=== PATIENT | female | born 1995 | race Two or more races ===

== ENCOUNTER 2024-06-10 05:09 | Observation (INO) | payer MEDICAID, SELFPAY ==
[2024-06-10 05:15] VITALS: BP 114/76; RESP 16; TEMP 36.7; O2SAT 97
[2024-06-10 05:33] VITALS: BMI 34.0
== END 2024-06-10 05:57 | disposition home or self-care (01) ==
PROVIDERS: Admitting Provider Obstetrics & Gynecology; Visit Provider Advanced Practice Midwife
DX: O26.893 Other specified pregnancy related conditions, third trimester (principal); Z3A.29 29 weeks gestation of pregnancy; R10.9 Unspecified abdominal pain; R19.7 Diarrhea, unspecified
CPT/HCPCS: 59899

== ENCOUNTER 2024-06-11 00:03 | Observation (INO) | payer MEDICAID, SELFPAY ==
[2024-06-11 00:07] VITALS: BP 120/73; PULSE 100
[2024-06-11 00:10] VITALS: RESP 16; TEMP 36.8; O2SAT 97
[2024-06-11 00:19] VITALS: TEMP 36.8; BMI 34.9
[2024-06-11] MEDS: ONDANSETRON ODT 4 MG TABRAP PO (00:47)
== END 2024-06-11 01:02 | disposition home or self-care (01) ==
PROVIDERS: Admitting Provider Obstetrics & Gynecology; Visit Provider Obstetrics & Gynecology
DX: O21.2 Late vomiting of pregnancy (principal); O26.893 Other specified pregnancy related conditions, third trimester; R19.7 Diarrhea, unspecified; Z3A.29 29 weeks gestation of pregnancy
CPT/HCPCS: 59025; 59899; Q0162

== ENCOUNTER 2024-08-17 11:47 | Inpatient (IN) | payer MEDICAID, SELFPAY ==
[2024-08-17] VITALS (26 sets, daily range): BP systolic 111–146; BP diastolic 56–87; PULSE 75–117; RESP 15; TEMP 36.7; O2SAT 90–97; BMI 39.8
--- NOTE | 2024-08-17 12:52 | XR_ITS ---
Examination: Biophysical profile, ultrasound Date and time of exam: August 17, 2024 1430 hours INDICATIONS: Pelvic contractions beginning 2 days ago, diagnosis high risk Technique: Multiple transabdominal sonographic images of the pelvis abdomen obtained. Attention is directed to the breathing movement, gross body movement, amniotic fluid volume and tone. Findings: Amniotic fluid index 2.4 cm Total biophysical profile is 6 of 8. breathing movement is 2. Gross body movement is 2. tone is 2. Qualitative amniotic fluid volume is 0 Impression: Biophysical profile is 6 of 8.
[2024-08-17 13:48] LABS: Basophils # (Auto) 0.1 Thou/mm3 (0.0-0.2); Basophils % (Auto) 0 % (0-2.5); Eosinophils # (Auto) 0.1 Thou/mm3 (0.0-0.5); Eosinophils % (Auto) 1 % (0-10); Hematocrit 39.9 % (36.0-46.0); Hemoglobin 13.5 g/dL (12.0-16.0); Immature Granulocytes % (Auto) 2 % (0-0); Immature Granulocytes Auto 0.25 Thou/mm3 (0.00-0.00); Lymphocytes % (Auto) 14 % (10-50); Mean Corpuscular HGB Conc 33.8 g/dl (31.0-37.0); Mean Corpuscular Hemoglobin 30.9 pg (25.0-35.0); Mean Corpuscular Volume 91 fL (80-100); Monocytes # (Auto) 1.2 Thou/mm3 (0.0-0.8); Monocytes % (Auto) 8 % (0-12); Neutrophils % (Auto) 76 % (37-80); Nucleated Red Blood Cell % 0 /100 WBC (0); Platelet Count 227 Thou/mm3 (140-440); RDW Standard Deviation 46.8 fL (36.4-46.3); Red Blood Count 4.37 Miln/mm3 (4.00-5.20); White Blood Count 14.6 Thou/mm3 (3.6-11.0)
[2024-08-17 13:55] LABS: Collection Type, Urine Clean Catch
[2024-08-17 14:11] LABS: Alanine Aminotransferase 67 U/L (10-49); Albumin, Serum 3.8 gm/dL (3.5-5.0); Albumin/Globulin Ratio 1.4 (1.2-2.2); Alkaline Phosphatase 136 U/L (46-116); Anion Gap 8 (7-16); Aspartate Amino Transferase 45 U/L (0-34); BUN/Creatinine Ratio 12 Ratio (12-20); Bilirubin,Total 0.4 mg/dL (0.3-1.2); Blood Urea Nitrogen 7 mg/dL (9-23); Calcium 9.5 mg/dL (8.3-10.6); Calcium (Corrected) 9.7 mg/dL (8.5-10.1); Carbon Dioxide 23.7 mMol/L (20.0-31.0); Chloride 107 mMol/L (98-107); Creatinine (Component) 0.6 mg/dL (0.6-1.3); Globulin 2.7 gm/dL (2.3-3.5); Glucose 81 mg/dL (74-106); Osmolality,Calculated 274 (275-295); Potassium 4.5 mMol/L (3.4-5.1); Sodium 139 mMol/L (136-145); Total Protein 6.5 gm/dL (5.7-8.2); Uric Acid 5.3 mg/dL (3.1-7.8); eGFR > 60 See Note
[2024-08-17 14:19] LABS: Fibrinogen 439 mg/dL (175-375); Partial Thromboplastin Time 26.7 Seconds (22.0-36.0); Prothrombin Time 10.9 Seconds (9.0-12.2)
[2024-08-17 14:24] LABS: Bacteria,Urine 3+; Bilirubin,Urine Negative (Negative); Blood,Urine Negative (Negative); Clarity,Urine Turbid (Clear/Hazy); Color,Urine Yellow (Lt Yel-Yel); Glucose, Urine Negative (Negative); Ketones,Urine Negative (Negative); Leukocyte Esterase,Urine Positive (Negative); Nitrite,Urine Negative (Negative); PH,Urine 5.5 (5.0-7.0); Protein,Urine Trace (Neg - Trace); RBC,Urine < 1 /hpf (0-3); Specific Gravity,Urine 1.022 (1.001-1.035); Squamous Epithelial Cell,Urine 30 /hpf (0-5); Urobilinogen,Urine Negative mg/dL (0.0-1.0); WBC,Urine 14 /hpf (0-5)
--- NOTE | 2024-08-17 14:43 | XR_ITS ---
Examination: age Limited TECHNIQUE: Limited transabdominal sonographic images pelvis Exam date and time: August 17, 2024 1520 hours INDICATIONS: Pelvic contractions beginning 2 days ago FINDINGS: Viable intrauterine gestation cephalic presentation spine maternal left Cardiac motion 138 BPM IMPRESSION: Viable intrauterine gestation cephalic presentation
[2024-08-17] MEDS: MISOPROSTOL 50 mCg TABLET PO ×2 (16:30→20:35)
[2024-08-17 17:38] LABS: Syphilis Nonreactive (Nonreactive)
--- NOTE | 2024-08-17 18:06 | ESHP_ITS ---
Documentation for date of: 08/17/24 OB Labor/Induct. HPI History of Present Illness Chief complaint: labor : 1 Para: 0 Term pregnancies: 0 pregnancies: 0 Living children: 0 History of Abortions: Spontaneous and Elective: 0 History of Vaginal deliveries: 0 History of sections: No History of : No Date of last menstrual period: 11/17/23 PEDRO: 08/23/24 Gestational Age (weeks): 39 Gestational Age (days): 1 Gestational age based on last menstrual period: 39 Indication for induction: medical complication (elevated livers, oligo) History of present illness: 29-year-old 1 para 0 admit to labor and delivery with complaints of contractions since 7 in the morning. Patient is been followed [facility] care. First visit was 25 weeks. Last period November 17, 2023. Estimated due date of August 23, 2024. Patient is 39 and 1 complains of increased edema lower extremities so PIH labs were done and liver enzymes were elevated and patient had low MARLENE and BPP so patient was kept for induction. Patient is O+, antibody screen negative, RPR nonreactive, rubella immune, hepatitis B negative, hep C negative, HIV negative, GC and Chlamydia were negative. GBS negative. 1 hour GTT negative. Normal NIPT and carrier screens. And anatomy scans were normal History of Present Dating criteria: LMP confirmed by 1st trimester US Adequate Care: Yes Ultrasounds: normal 1st trimester US and normal mid trimester US Obstetrical complications: none and other Labs Labs: Negative: Hepatitis B, HIV, Chlamydia, Gonorrhea and Group Beta Strep Review of Systems Review of Systems Systems Reviewed: All systems reviewed, normal except as documented Past Medical History Surgical History SURGICAL: Positive Section Meds Home Medications and Allergies Home Medications ?Medication ?Instructions ?Recorded ?Confirmed ?Type no.58-iron bisglycinate 400 cap PO QDAY 06/1008/17/24 History 10 mg iron-folic acid 400 mcg capsule Allergies Allergy/AdvReac Type Severity Reaction Status Date / Time No Known Allergies Allergy Verified 08/17/24 15:36 OB Exam Physical Exam Vital signs: Pulse BP Pulse Ox 93 124/76 90 L 08/17/24 17:43 08/17/24 17:43 08/17/24 12:08 Narrative: Vital signs stable afebrile. Lungs are clear. Normal heart rate and rhythm. Gravid abdomen. Gynecoid pelvis. Estimated weight 7 pounds. Vaginal exam on admission was 80%, 2, -2. Vertex. Bag water intact. MARLENE was 2 and a BPP of 6 out of 8. With elevated liver enzymes. heart rate category 1 overall with accelerations and moderate variability and irregular contractions. Blood pressures were in mild range Detailed Labor and Delivery Exam Dilation (cm): 2 Effacement (%): 80 Cervix position: mid station: -2 Consistency: soft Presentation: Vertex Cervical ripeness score: 4 Membranes: intact Baseline heart rate: 145 monitor accelerations: 15x15 monitor decelerations: None terminal operator variability: Moderate (11-25) Contraction frequency (min): irreg Contraction duration (sec): 30 Tachysystole: No Contraction intensity: Mild OB Results Labs 08/17/24 13:35 08/17/24 13:35 Labs: Short CBC 08/17/24 Range/Units 13:35 WBC 14.6 H (3.6-11.0) Thou/mm3 Hgb 13.5 (12.0-16.0) g/dL Hct 39.9 (36.0-46.0) % Plt Count 227 (140-440) Thou/mm3 BMP 08/17/24 13:35 Sodium 139 Potassium 4.5 Chloride 107 Carbon Dioxide 23.7 BUN 7 L Creatinine 0.6 Glucose 81 Calcium 9.5 Liver Function 08/17/24 Range/Units 13:35 Total Bilirubin 0.4 (0.3-1.2) mg/dL AST 45 H (0-34) U/L ALT 67 H (10-49) U/L Alkaline Phosphatase 136 H (46-116) U/L Albumin 3.8 (3.5-5.0) gm/dL Urine 08/17/24 Range/Units 13:20 Urine Color Yellow (Lt Yel-Yel) Urine Clarity Turbid A (Clear/Hazy) Urine pH 5.5 (5.0-7.0) Ur Specific [place] 1.022 (1.001-1.035) Urine Protein Trace (Neg - Trace) Urine Glucose (UA) Negative (Negative) Impressions Impression: induction OB Assessment & Plan Assessment and Plan (1) Normal labor and delivery: Status: Acute Additional Plan Induction method: per misoprostol protocol Plan: induction, anticipate NVD and consult MD haji (Consult with Dr. Graham regarding elevated liver enzymes. Will continue to monitor blood pressure if blood pressure range increases above mild and or too severe then patient will be started also on mag sulfate started with Cytotec 50 till BC of 8 and then Pitocin to follow.)
[2024-08-17] MEDS: PROMETHAZINE INJ 25 MG/ML VIAL 12.5 MG IM (22:53)
[2024-08-17] MEDS: MEPERIDINE INJ 50 MG/ML VIAL 75 MG IM (22:53)
[2024-08-18] VITALS (348 sets, daily range): BP systolic 90–169; BP diastolic 48–97; PULSE 71–134; RESP 18–20; TEMP 36.8–37.2; O2SAT 88–100
--- NOTE | 2024-08-18 02:30 | PD.LDPN ---
Documentation for date of: 08/18/24 OB Labor Progress Note Pain Control Comments: I was called at 1:45 AM by the room nurse, baby is down for 3 minutes from a baseline of 130-90, patient is on hands and knees, in spite of the position change and IV bolus baby is not recovering. Primary low-transverse was called at that moment baby was back up after prolonged deceleration for 7 minutes. Pelvic Exam Dilation (cm): 3-4 Effacement (%): 100 station: -2 Amniotic membrane status: Ruptured Contractions Contraction frequency: irreg Contraction intensity: Mild Status Comments: Baby is back up with moderate variability and accelerations. Assessment and Plan Comments: Patient is hesitant about going for a . Currently baby is back up at 08/04/1939 baseline with moderate variability. On cervical examination she is 3 to 4 cm 100% effaced. Internal monitors placed after AROM scalp stimulation provoked and acceleration. will reassess in 10 min
[2024-08-18] MEDS: TERBUTALINE SULF INJ 1 MG/ML VIAL 0.25 MG SC (03:20)
[2024-08-18] MEDS: RINGERS LACTATED 1000 ML 1,000 ML 125 ML IV ×2 (08:31→16:31)
--- NOTE | 2024-08-18 17:10 | ESPR_ITS ---
Documentation for date of: 08/18/24 OB Labor Progress Note Pain Control Pain control: tolerating well and epidural Pelvic Exam Dilation (cm): 10 Effacement (%): 100 station: 0 Amniotic membrane status: Ruptured Contractions Monitor mode: Internal Contraction frequency: 3 Contraction intensity: Moderate Status status: Category l Assessment and Plan Assessment: active labor Plan OB labor note: continuous present management Comments: Patient has labored down approximately 2-1/2 hours we will start pushing soon. Patient has epidural in place and hand fretted instrument maker at bedside.
[2024-08-18] MEDS: OXYTOCIN in NS 20 units 20 UNIT/1,000 ML BAG 125 UNIT IV (17:40)
[2024-08-18] MEDS: IBUPROFEN TAB 400 MG TABLET 800 MG PO (19:25)
--- NOTE | 2024-08-18 19:37 | OBDSUM_ITS ---
Data ([place]) Data Hx Section: No Maternal Blood Type: O Pos Rubella Titre: Positive RPR: Non-reactive Labs: Negative: RPR, Hepatitis B, HIV, Chlamydia, Gonorrhea and Group Beta Strep : 1 Para: 0 Term: 0 : 0 : 0 Delivery Data ([place]) Labor Data Stimulated/Augmented: Yes Induction: Yes Method: Cervidil ROM Date: 08/18/24 ROM Time: 02:20 Rupture Type: AROM Amniotic Fluid: Clear Delivery Data EDC: 08/23/24 EDC calculated by:: LMP/early US confirmation Labor Onset Stage 1 Date: 08/17/24 Labor Onset Stage 1 Time: 16:30 Labor Onset Stage 2 Date: 08/18/24 Labor Onset Stage 2 Time: 16:08 Delivery Date: 08/18/24 Delivery Time: 17:36 Gestational age (weeks): 39 Gestational age (days): 2 Placenta Delivery Date: 08/18/24 Placenta Delivery Time: 17:40 Length stage 2 (minutes): 20 Length stage 3 (minutes): 5 Delivered by: Samantha Porter Delivery nurse: Starr Aparicio Mis Director at delivery: No Support person(s) at delivery: FOB. Sister of ptShannan CANDICE Nieves Other staff at delivery: Nursery Nurse Other staff at delivery: Denisa Lacey Delivery Method Delivery: Vaginal Delivery Type: Spontaneous Presentation: Vertex Position: OA Anesthesia Type Primary Anesthesia: Epidural Placenta Placenta Delivery: Spontaneous Placenta Cultures Obtained: No Placenta Sent for Examination: No Lacerations #1: Perineal: 1st degree Perineal repair Sutures used for repair: other (4-0 chromic) EBL Estimated blood loss (ml): 50 Umbilical Cord Umbilical Vessels: 3 Nuchal Cord: x1 Loosely Body Cord: None Additional Procedures The patient is a 29-year-old G1, P0 admitted by the environmental protection forester for an induction of labor for increased liver function tests and oligohydramnios on 08/17/24. She was signed out to me about 7:00 in the morning 08/18/24. I checked her first t celso in the morning she was 3 to 4 cm dilated. By one in the afternoon she was 9 cm dilated. She progressed to complete and then labored down approximately 2 and half hours and began and pushing about 1715.She pushed approximately 20 minutes delivering a liveborn male at 1736. Findings: liveborn male with a with a loose nuchal cord x 1 and light meconium behind the . Apgars were 8 and 9 weight was 7 pounds 8 ounces. The placenta was complete spontaneous and grossly normal delivering approximately 5 minutes after the baby delivered. The patient sustained a very small first-degree perineal laceration repaired in a standard fashion using 4-0 chromic. EBL was 50 cc. The patient had an epidural. Also of note patient requested the placenta to go home with her for placental encapsulation. Complications were none. Condition: both mom and were in stable condition in the delivery room Complications Complications: None [place] Data ([place]) [place] Data Infant Gender: Male Infant Weight Grams: 3390 1 Minute Total: 8 5 Minute Total: 9 Additional Comments Additional comments: Light meconium noted at delivery
[2024-08-18] MEDS: DOCUSATE SOD 100 MG CAPSULE PO (21:52)
[2024-08-19] VITALS (8 sets, daily range): BP systolic 109–133; BP diastolic 72–85; PULSE 74–99; RESP 18–20; TEMP 36.6–36.9; O2SAT 95–97
[2024-08-19 00:48] LABS: Basophils # (Auto) 0.1 Thou/mm3 (0.0-0.2); Basophils % (Auto) 0 % (0-2.5); Eosinophils # (Auto) 0.1 Thou/mm3 (0.0-0.5); Eosinophils % (Auto) 0 % (0-10); Hematocrit 33.2 % (36.0-46.0); Hemoglobin 11.4 g/dL (12.0-16.0); Immature Granulocytes % (Auto) 1 % (0-0); Immature Granulocytes Auto 0.27 Thou/mm3 (0.00-0.00); Lymphocytes % (Auto) 9 % (10-50); Mean Corpuscular HGB Conc 34.3 g/dl (31.0-37.0); Mean Corpuscular Hemoglobin 31.2 pg (25.0-35.0); Mean Corpuscular Volume 91 fL (80-100); Monocytes # (Auto) 2.5 Thou/mm3 (0.0-0.8); Monocytes % (Auto) 11 % (0-12); Neutrophils # (Auto) 18.4 Thou/mm3 (1.8-7.7); Neutrophils % (Auto) 79 % (37-80); Nucleated Red Blood Cell % 0 /100 WBC (0); Platelet Count 200 Thou/mm3 (140-440); RDW Standard Deviation 47.8 fL (36.4-46.3); Red Blood Count 3.65 Miln/mm3 (4.00-5.20); White Blood Count 23.3 Thou/mm3 (3.6-11.0)
[2024-08-19] MEDS: ACETAMINOPHEN 325 MG TABLET 650 MG PO ×2 (06:35→11:19)
[2024-08-19] MEDS: IBUPROFEN TAB 400 MG TABLET 800 MG PO ×3 (07:21→23:22)
[2024-08-19] MEDS: DOCUSATE SOD 100 MG CAPSULE PO ×2 (08:58→21:45)
--- NOTE | 2024-08-19 09:19 | ESPR_ITS ---
Subjective Subjective Interval history: Patient doing well overall, just tired. Minimal discomfort. She is ambulating no lightheadedness/dizziness. Voiding spontaneously, no issues. Tolerating regular diet without nausea/vomiting. No fevers/chills, no CP/SOB. Exam Vital Signs Temp Pulse Resp BP Pulse Ox O2 Del Method 98.4 F 95 20 129/81 95 Room Air 08/19/24 07:30 08/19/24 07:30 08/19/24 07:30 08/19/24 07:30 08/19/24 07:30 08/19/24 07:30 Narrative Exam General: well developed, well nourished, no acute distress, conversant Cardiac: normal heart rate Lungs: breathing without distress Abdomen: soft, post-gravid, non-tender, no rebound or guarding, Fundus firm at u-3cm. Extremities: no pain with palpation of calves, 1+ edema of BLE Objective Labs 08/19/24 00:29 08/17/24 13:35 Labs: Laboratory Results - last 24 hr 08/19/24 00:29 WBC 23.3 H D RBC 3.65 L Hgb 11.4 L D Hct 33.2 L MCV 91 MCH 31.2 MCHC 34.3 RDW Std Deviation 47.8 H Plt Count 200 Neut % (Auto) 79 Lymph % (Auto) 9 L [place] % (Auto) 11 Eos % (Auto) 0 Baso % (Auto) 0 Neut # (Auto) 18.4 H Lymph # (Auto) 2.0 [place] # (Auto) 2.5 H Eos # (Auto) 0.1 Baso # (Auto) 0.1 Immature Gran # (Auto) 0.27 H Absolute Nucleated RBC 0.00 Immature Gran % 1 H Nucleated RBC % 0 Assessment & Plan Problem List (1) Normal labor and delivery: Status: Acute Assessment and plan: Bell is a 29yo [id number] s/p uncomplicated after undergoing IOL for oligohydramnios and slightly elevated LFTs, doing well on PPD 1. Vitals wnl, benign exam. Hemodynamically stable with no evidence of infection. Appropriate change in Hgb: 11.4 from 13.5. Patient does not feel ready to go home today. Plan: -Continue routine care -Regular diet -Encourage ambulation -Anticipate discharge home tomorrow if continuing to meet all milestones (2) Oligohydramnios delivered: Status: Acute (3) Elevated liver enzymes: Status: Acute Time Spent With Patient Time: Total time spent is greater than 50% in coordination of care (as documented) at patient's floor/unit and/or counseling patient:
[2024-08-19] MEDS: HYDROCORTISONE ACET 25 MG SUPP PR (15:11)
--- NOTE | 2024-08-19 21:48 | PC.NURSE ---
08/19/241999: Pt. educated on pumping breastmilk after on both sides. Instructed to feed and call RN when finished pumping to get breastmilk for storage. 08/19/242144: Pt. educated again to call RN when finished pumping for collection. Pt states she is going to pump now and call RN when finished.
--- NOTE | 2024-08-19 21:55 | PC.NURSE ---
08/19/24 2145: Pt. offered tylenol for pain, pt. declined at this time and states she will wait until later when the motrin is available.
[2024-08-20 04:00] VITALS: BP 113/75; PULSE 91; RESP 18; TEMP 36.7; O2SAT 96
[2024-08-20 08:00] VITALS: BP 102/65; PULSE 86; RESP 18; TEMP 36.6; O2SAT 97
[2024-08-20] MEDS: DIPHTH,PERTUSS(ACELL),TET VAC 0.5 ML SYR IMi (10:45)
--- NOTE | 2024-08-20 12:01 | ESDS_ITS ---
DS: Providers Provider Date of admission: 08/17/24 14:44 Primary care physician: Physician No Primary/Family Admitting Provider: Lizbeth Wood CNM Attending Provider on Admission: Karin Narayanan MD Consults: 08/18/24 17:59 Referral Routine Comment: Attending Provider on DC: Karin Narayanan MD Discharging Provider: Karin Narayanan MD DS: Diagnosis Discharge Diagnosis (1) Oligohydramnios delivered: Status: Acute (2) Elevated liver enzymes: Status: Acute (3) Vaginal delivery: Status: Acute Problem List Completed Was Problem List Reviewed/Reconciled?: Yes Summary/Hosp Course Brief History: 29-year-old 1 para 0 admit to labor and delivery with complaints of contractions since 7 in the morning. Patient is been [facility] care. First visit was 25 weeks. Last period November 17, 2023. Estimated due date of August 23, 2024. Patient is 39 and 1 complains of increased edema lower extremities so PIH labs were done and liver enzymes were elevated and patient had low MARLENE and BPP so patient was kept for induction. Patient is O+, antibody screen negative, RPR nonreactive, rubella immune, hepatitis B negative, hep C negative, HIV negative, GC and Chlamydia were negative. GBS negative. 1 hour GTT negative. Normal NIPT and carrier screens. And anatomy scans were normal. She is doing well PPD 2 s/p uncomplicated . She has had an uncomplicated course, meeting all milestones and feels ready for discharge home. She is ambulating without lightheadedness, tolerating regular diet no n/v, spontaneously voiding without issue. She has no chest pain or shortness of breath. No fevers or chills. Minimal, appropriate discomfort. Vitals normal, benign exam. Hemodynamically stable with no evidence of infection. PP Hgb 11.4. Status at Discharge Functional status at discharge: independent ambulation Overall status at discharge: patient is back to baseline Time Spent with Patient Time attestation: Total time spent providing and/or coordinating discharge services: Exam Vital Signs Temp Pulse Resp BP Pulse Ox O2 Del Method 97.9 F 86 18 102/65 97 Room Air 08/20/24 08:00 08/20/24 08:00 08/20/24 08:00 08/20/24 08:00 08/20/24 08:00 08/20/24 08:00 Narrative Exam General: well developed, well nourished, no acute distress, conversant Cardiac: normal heart rate Lungs: breathing without distress Abdomen: soft, post-gravid, non-tender, no rebound or guarding, Fundus firm at u-3cm. Extremities: no pain with palpation of calves, trace edema of BLE Discharge Plan Plan Patient Disposition: HOME (Self Care) Patient condition on transfer: Stable Prescriptions/Referrals Prescriptions/Med Rec: New docusate sodium 100 mg Capsule 100 mg PO BID 5 Days Qty: 10 0RF ibuprofen 800 mg tablet 800 mg PO Q8H PRN (Reason: See Comments) 10 Days Qty: 30 0RF Continued PNV comb no.58-iron bisgly-FA 10-400 mg-mcg Capsule 400 cap PO QDAY Referrals: No Primary/Family,Physician [Primary Care Provider] - Patient/Caregiver Discharge Instructions Discharge Activity: activity as tolerated and other Other Discharge Activity Instructions:: vaginal rest and no heavy lifting greater than 10 pounds for 6 weeks. Other Discharge Diet Instructions: Regular Education Materials: After a Vaginal Print Language: Turkish Activity Restrictions/Additional Instructions: follow up in 1 week with CNM or OBGYN for bp check and early visit Stand Alone Forms: [facility] Award Info., Patient Portal Info Letter Discharge Order Discharge Orders: Discharge (Routine); Ordered 08/20/24 Ordered By: Karin Narayanan Planned Discharge Date 08/20/24
== END 2024-08-20 13:41 | disposition home or self-care (01) | DRG 560 ==
LOC: S4SX 08-18 17:10 → S4NX 08-18 20:05
PROVIDERS: Obstetrics & Gynecology; Admitting Provider Advanced Practice Midwife; Visit Provider Obstetrics & Gynecology
DX: O41.03X0 Oligohydramnios, third trimester, not applicable or unspecified (principal); O76 Abnormality in fetal heart rate and rhythm complicating labor and delivery; O77.0 Labor and delivery complicated by meconium in amniotic fluid; O69.81X0 Labor and delivery complicated by cord around neck, without compression, not applicable or unspecified; O70.0 First degree perineal laceration during delivery; Z37.0 Single live birth; Z3A.39 39 weeks gestation of pregnancy; R74.8 Abnormal levels of other serum enzymes; R60.9 Edema, unspecified
CPT/HCPCS: 36415; 59409; 76815; 76819; 80053; 81001; 84550; 85025; 85384; 85610; 85730; 86780; 86850; 86900; 86901; 90715; 94762; J2175; J2250; J2274; J2550; J2590; J2795; J3010; J3105; J3490; J7120; A9270; J2270

== ENCOUNTER → 2024-12-06 | Outpatient (CLI) | payer MEDICAID, SELFPAY ==
--- NOTE | 2024-12-06 14:02 | XR_ITS ---
Examination: Lumbar spine, 5 views Technique: Lumbar spine AP, lateral, coned lateral lower lumbar spine, bilateral obliques 5 views Exam date and time: December 06, 2024 1410 hours INDICATIONS: Lower back pain beginning 4 months ago. FINDINGS: Adequate alignment lumbar vertebral bodies Mild disc narrowing L4-L5, L5-S1 No spondylolisthesis No lumbar fracture IMPRESSION: Mild disc narrowing L4-L5, L5-S1
--- NOTE | 2024-12-06 14:02 | XR_ITS ---
Examination: Bilateral hips, AP pelvis, 5 views Technique: AP, lateral views both hips, AP pelvis, 5 views Exam date and time: December 06, 2024 1410 hours INDICATIONS: Left-sided hip pain 4 months FINDINGS: Normal right and left hip Bones of the pelvis intact No avascular necrosis IMPRESSION: Negative study
== END | disposition home or self-care (01) ==
PROVIDERS: PCP Student in an Organized Health Care Education/Training Program; Referring Provider Student in an Organized Health Care Education/Training Program; Visit Provider Student in an Organized Health Care Education/Training Program
DX: M48.07 Spinal stenosis, lumbosacral region (principal); M48.061 Spinal stenosis, lumbar region without neurogenic claudication; M25.552 Pain in left hip; M25.551 Pain in right hip
CPT/HCPCS: 72110; 73523

== ENCOUNTER 2025-02-06 09:49 | Outpatient (RCR) | payer MEDICAID, SELFPAY ==
--- NOTE | 2025-02-06 10:17 | PTNOTE_ITS ---
PT OP Initial Eval Patient Information Outpatient Physical Therapy Treatment Date: 02/06/25 Visit Reasons: Sciatica left side/pain in knee Medical Diagnosis: M54.32; M41.8 Treatment Dx #1: Spinal Mobility Deficits Treatment Dx #2: Back Pain Start of Care: 02/06/25 Smoking Status Smoking Status: Never smoker Initial Assessment Subjective: Pt is a 29 y/0 female reports of chronic back pain (10) worsening since postp artum ~ 6 months ago. Pt now notice left LE numbness and tingling down to the knee. Pt has limitation with sitting, standing, chores, self care, taking care of her son, and recreational activities. Objective: L/S and T/S AROM: all motions are WFL except pain with left sidebending and right rotation Hip PROM: all motions are WFL except IR Hip MMTs: grossly 3+/5 Posture: right shoulder elevation, right trunk sidebend Special Test (+) SLR (+) slump Assessment: Pt demonstrate abnormal posture and left radicular pain leading to difficulty with ADLs. Pt will attempt physical therapy if pain persist Pt will be refer back to provider for further consultation Short Term and Trailer Tank Truck Driver Goals 1) Increase spinal mobility WNL in 6 wks to be able to perform chores 2) Decrease back pain to 2/10 in 6 wks to be able to sit and stand more than 30 mins 3) Increase core strength WNL in 6 wks to be able to perform recreational activities 4) Increase hip MMTs grossly to 4-/5 in 6 wks to be able to walk more than 30 mins 5) Indep with HEP Treatment Plan 1) Manual Therapy 2) Therapeutic Activities 3) Therapeutic Exercises 4) Modalities (ice, heat) Frequency and Duration: 2 x wk for 6 wks Certification Dates: 02/06/25 to 05/09/25 Procedure Charges OP PT Eval Mod Complex 30 minutes: Yes
--- NOTE | 2025-03-02 13:43 | PT.ODS1RPT ---
PT OP Progress/Discharge Note Date of Service: 03/02/25 Progress Note/DC Note Progress Note/Discharge Note: DC Note Patient Information Visit Reasons: Sciatica left side/pain in knee Service Discharge Date: 03/02/25 Status Assessment: Pt has been seen for initial evaluation 02/06/25 and has not returned to therapy. Pt cx 02/09, 02/16 appt, and no showed 02/13 appt. Pt has been contact regarding follow up appts without success. At this time Pt will be d/c from care due to non-compliance per attendance policy. Pt did not meet set goals in therapy; thank you for your referrals
== END 2025-03-04 23:59 | disposition home or self-care (01) ==
LOC: CPTX 09:49
PROVIDERS: PCP Student in an Organized Health Care Education/Training Program; Referring Provider Student in an Organized Health Care Education/Training Program; Visit Provider Student in an Organized Health Care Education/Training Program
DX: M54.9 Dorsalgia, unspecified (principal); M54.32 Sciatica, left side; R29.3 Abnormal posture; G89.29 Other chronic pain
CPT/HCPCS: 97162

== ENCOUNTER 2025-03-28 12:53 | Emergency (ER) | payer MEDICAID, SELFPAY ==
[2025-03-28 13:05] VITALS: BP 114/76; PULSE 94; RESP 16; TEMP 37.1; O2SAT 98
--- NOTE | 2025-03-28 13:10 | EDNOTE_ITS ---
ED Back Injury Pain RME/HPI General Chief Complaint: Back Pain/Injury Stated Complaint: LOWER BACK PAIN/STIFFNESS; DX'D W/ UTI TODAY Time Seen by Provider: 03/28/25 12:58 Arrival date/time: 03/28/25 12:53 30-year-old female presents to the emergency department today ongoing for months patient reports that she was diagnosed with UTI today by her PCP was given a course of antibiotics patient reports no sensation loss bowel bladder patient ports no fever nausea or vomiting patient does report she has had imaging the past Limitations: no limitations Related Data Home Medications ?Medication ?Instructions ?Recorded ?Confirmed no.58-iron bisglycinate 400 cap PO QDAY 06/1008/17/24 10 mg iron-folic acid 400 mcg capsule Previous Rx's ?Medication ?Instructions ?Recorded cyclobenzaprine 10 mg tablet 10 mg PO TID PRN muscle s pasm 10 03/28/25 days #30 tab-caps hydrocodone 5 mg-acetaminophen 325 1 tab PO BID PRN pa in #6 tabs 03/28/25 mg tablet ibuprofen 800 mg tablet 800 mg PO TID PRN pain #30 t abs 03/28/25 prednisone 10 mg tablet 30 mg (3 x 10 mg) PO BID 3 d ays 03/28/25 #18 tabs Allergies Allergy/AdvReac Type Severity Reaction Status Date / Time No Known Allergies Allergy Verified 03/28/25 12:57 Review of Systems Review of Systems Systems Reviewed: All systems reviewed, normal except as documented Constitutional Constitutional: Reports system reviewed and no additional complaints, except as documented, Denies fever(s) and Denies headache(s) Eyes Eyes: Reports system reviewed and no additional complaints, except as documented and Denies blurry vision ENT Ears, Nose, Mouth, and Throat: Reports system reviewed and no additional complaints, except as documented, Denies headache(s), Denies nasal congestion and Denies nasal discharge Cardiovascular Cardiovascular: Reports system reviewed and no additional complaints, except as documented, Denies chest pain and Denies dyspnea Respiratory Respiratory: Reports system reviewed and no additional complaints, except as documented, Denies chest congestion, Denies cough and Denies dyspnea Gastrointestinal Gastrointestinal: Reports system reviewed and no additional complaints, except as documented and Denies abdominal pain Musculoskeletal Musculoskeletal: Reports system reviewed and no additional complaints, except as documented and Reports back pain Integumentary/Breasts Skin/Breast: Reports system reviewed and no additional complaints, except as documented and Denies rash Neurologic Neurologic: Reports system reviewed and no additional complaints, except as documented, Reports as per HPI and Denies headache(s) Past Medical History Past Medical History NEUROLOGIC: Negative Neurological Disorders CARDIAC: Negative Cardiac Disorders or Congestive Heart Failure RESPIRATORY: Positive Asthma (self); Negative Chronic Obstructive Pulmonary Disease (COPD) GASTROINTESTINAL: Negative Gastrointestinal Disorders GENITOURINARY: Negative Genitourinary Disorders or Renal Disease REPRODUCTIVE: Negative Pelvic Inflammatory Disease ENDOCRINE: Positive Diabetes Mellitus Type 2 (father of pt); Negative Endocrine Disorders or Diabetes Mellitus Type 1 HEMATOLOGIC: Negative Blood Disorders PSYCHO/SOCIAL: Positive Bipolar Disorder (mother of pt), Depression (self) and Anxiety (self) OTHER HISTORY: Positive Chicken Pox; Negative Autoimmune Disease, Blood Transfusions, Blood Transfusion Reaction, Anesthesia Reactions, MRSA, Clostridium Difficile or Cancer Family History FAMILY HISTORY: Negative Family Psychiatric Problems, Family Respiratory Disorders, Family Cardiac Disorders, Family Gastrointestinal Problems, Family Cancer, Family Surgery or Family Anesthesia Reaction Surgical History SURGICAL: Negative Cardiac Surgery, Endocrine Surgery, Ear Surgery, Abdominal Surgery, Nephrectomy, Joint Replacement, Neurologic Surgery, Mastectomy or Section Social History SMOKING STATUS: Never smoker SUBSTANCE USE: does not use ED Exam General Limitations: Present no limitations General appearance: Present alert and in no apparent distress Head Head exam: Present atraumatic Eye Eye exam: Present normal appearance, PERRL and EOMI ENT ENT exam: Present normal exam, normal oropharynx and mucous membranes moist Neck Neck exam: Present normal inspection, full ROM and trachea midline Chest Chest inspection: Present normal inspection and symmetric chest wall rise Respiratory Respiratory exam: Present normal lung sounds bilaterally; Absent respiratory distress, wheezes, stridor, accessory muscle use or prolonged expiratory phase Cardiovascular Cardiovascular exam: Present regular rate, normal rhythm and normal heart sounds Abdominal Exam Abdominal exam: Present soft and normal bowel sounds; Absent distention, tenderness, guarding, rebound, rigidity, Malloy's sign or tenderness at McBurney 's Point Abdominal tenderness: Absent RUQ or RLQ Extremities Exam Extremities exam: Present normal inspection and full ROM Back Exam Back exam: Present normal inspection, full ROM and paraspinal tenderness; Absent tenderness, CVA tenderness (R), CVA tenderness (L), muscle spasm, vertebral tenderness, sciatic notch tenderness (R), sciatic notch tenderness (L), straight leg raise (R) or straight leg raise (L) Neurological Exam Neurological exam: Present alert, oriented X3 and CN II-XII intact Psychiatric Psychiatric exam: Present normal affect and normal mood Skin Skin exam: Present warm, dry, intact and normal color Course Quality Measures none Vital Signs Vital signs: Vital Signs Temperature 98.8 F 03/28/25 13:05 Pulse Rate 94 03/28/25 13:05 Respiratory Rate 16 03/28/25 13:05 Blood Pressure 114/76 03/28/25 13:05 Pulse Oximetry (%) 98 03/28/25 13:05 Oxygen Delivery Method Room Air 03/28/25 13:05 O2 saturation 98% on room air within normal limits Back Pain / Injury MDM Narrative MDM Narrative:: 30-year-old female presents to the emergency department today ongoing for months patient reports that she was diagnosed with UTI today by her PCP was given a course of antibiotics patient reports no sensation loss bowel bladder patient ports no fever nausea or vomiting patient does report she has had imaging the past On exam patient well-appearing patient does not appear ill or toxic no acute distress patient walks with steady gait has no abnormal neurological findings Imaging considered but not ordered as the patient's already had x-rays I did explain to the patient she should see her PCP that you are MRI in outpatient basis Currently patient reports she is undergoing physical therapy Patient discharged home in no distress to follow-up with primary care doctor in the next 24 to 48 hours and for any worsening symptoms to return to the ER immediately Patient data External records reviewed:: [facility] previous records Clinical information provided by:: patient Social determinants that could affect healthcare access:: none Patient has the following chronic illnesses:: None How is presenting disease/condition affected by chronic disease/condition?: no chronic disease Evaluation data The following diagnostics were reviewed and interpreted by me:: other (specify) Lab and/or radiology exams considered but not ordered:: Considered not indicated Interpretation Summary: N/A Medications / Prescriptions Medications or Prescriptions considered but not ordered:: Given Medication administrations:: Given Consultations Consultation(s) initiated? (list below): No Diagnosis Differential diagnosis back pain/injury: lumbar radiculopathy, sciatica and strain of lumbar region Most likely diagnosis given after review of the tests above:: Back pain Admission Indicated Admission indicated?: not indicated Admission Request Was there a request for admission?: No Disposition Plan Disposition Plan: Discharge Discharge Attestation Discharge Attestation: The patient and all family members were given an opportunity to ask questions and understood the discharge instructions. Discharge instructions specifically effects, indications for sooner follow up or return to the emergency department, and the expected course of current diagnosis. Patient condition: Stable Discharge Plan Plan Patient Disposition: HOME (Self Care) Discharge Disposition comment: Stable Prescriptions/Referrals Prescriptions/Med Rec: New cyclobenzaprine 10 mg tablet 10 mg PO TID PRN (Reason: muscle spasm) 10 Days Qty: 30 0RF ibuprofen 800 mg tablet 800 mg PO TID PRN (Reason: pain) Qty: 30 0RF hydrocodone-acetaminophen 5-325 mg tablet 1 tab PO BID MDD 10 PRN (Reason: pain) Qty: 6 0RF prednisone 10 mg tablet 30 mg PO BID 3 Days Qty: 18 0RF No Action PNV no.58-iron bisgly-folic ac 10-400 mg-mcg Capsule 400 cap PO QDAY Problem List Clinical Impression: Acute exacerbation of chronic low back pain Patient/Caregiver Discharge Instructions Education Materials: Understanding the Pain Response Additional Instructions: Please follow up with your primary care doctor in the next 24-48hrs for any worsening symptoms return here immediately Please request MRI from your PCP Print Language: Qatari Stand Alone Forms: Marlin Award Info., Patient Portal Info Letter PA/[employer] Supervising Physician PA/[employer] Supervising Physician: Dr. cortes
== END 2025-03-28 13:26 | disposition home or self-care (01) ==
PROVIDERS: Emergency Provider Nurse Practitioner Primary Care
DX: M54.50 Low back pain, unspecified (principal); G89.29 Other chronic pain
CPT/HCPCS: 99281